=== PATIENT | female | born 1950 | race Two or more races ===

== ENCOUNTER 2023-07-26 16:32 | Emergency (ER) | payer OTHER ==
[~2023-07-26] VITALS: Ht 152.4 cm; Wt 61.2 kg
[2023-07-26] MEDS ORDERED: CHILDREN'S ASPI81 MG PO (17:11)
[2023-07-26] MEDS ORDERED: COZAAR25 MG PO (17:11)
[2023-07-26] MEDS ORDERED: LOSARTAN POTASS50 MG PO (17:12)
[2023-07-26] MEDS ORDERED: ATACAND4 MG PO (17:12)
[2023-07-26] MEDS ORDERED: ORPHENADRINE CITRATE 30 MG/ML AMPUL IM ONE (22:30)
[2023-07-26] MEDS ORDERED: KETOROLAC TROMETHAMINE 30 MG VIAL IM ONE (22:30)
== END 2023-07-27 03:00 | disposition home or self-care (01) ==
LOC: ER 16:32
DX: S89.82XA Other specified injuries of left lower leg, initial encounter (principal); S79.812A Other specified injuries of left hip, initial encounter; S49.82XA Other specified injuries of left shoulder and upper arm, initial encounter; T07.XXXA Unspecified multiple injuries, initial encounter; W19.XXXA Unspecified fall, initial encounter; Y93.89 Activity, other specified; Y92.238 Other place in hospital as the place of occurrence of the external cause; Y99.8 Other external cause status
CPT/HCPCS: 71111; 72040; 73020; 73551; 73560; 96372; 99283; J1885; J3490